=== PATIENT | male | born 1980 | race Native Hawaiian/Other Pacific Islander ===

== ENCOUNTER 2016-11-16 14:08 | Emergency (ER) | payer OTHER ==
[~2016-11-16] VITALS: Ht 165.1 cm; Wt 78.0 kg
[2016-11-16 14:20] VITALS: TEMP 98.5
[2016-11-16 15:44] VITALS: BP 128/80
== END 2016-11-16 15:44 | disposition home or self-care (01) ==
LOC: ED 14:08
DX: S01.21XA Laceration without foreign body of nose, initial encounter (principal); R51 Headache; W20.8XXA Other cause of strike by thrown, projected or falling object, initial encounter; Y93.I9 Activity, other involving external motion; V28.4XXA Motorcycle driver injured in noncollision transport accident in traffic accident, initial encounter
CPT/HCPCS: 99283